=== PATIENT | female | born 1950 | race Caucasian/White ===

== ENCOUNTER 2017-07-04 13:12 | Emergency (ER) | payer OTHER ==
[~2017-07-04] VITALS: Ht 149.9 cm; Wt 98.0 kg
[~2017-07-04 13:12] MED LIST: A/B OTIC15 ML; AMLODIPINE BESYL5 M1 PO; ATORVASTATIN CA40 M1 PO; BENAZEPRIL HCL/1 TAB PO; ECOTRIN81 MG PO; GLIPIZIDE10 MG PO; METFORMIN HCL1000 MG PO; ZANTAC 150150 MG PO
[2017-07-04 14:13] VITALS: Ht 149.9 cm; Wt 98.0 kg
[2017-07-04 18:08] LABS: CALCIUM 8.8 mg/dL (8.5-10.1); CHLORIDE SERUM 103 mmol/L (98-107); CREATININE SERUM 0.7 mg/dL (0.6-1.0); GFR1 > 60 mL/min; GLUCOSE SERUM 251 mg/dL (74-106); POTASSIUM SERUM 3.4 mmol/L (3.5-5.1); SODIUM SERUM 140 mmol/L (136-145)
[2017-07-04 18:09] LABS: BASOPHIL % 0.6 % (0-2); PLATELET COUNT 251 x10^3mcL (130-400); RED CELL DISTRIBUTION WIDTH 14.4 % (11.5-14.5)
[2017-07-04 18:13] LABS: ALBUMIN 3.5 g/dL (3.4-5.0); ALKALINE PHOSPHATASE 142 U/L (46-116); ALT/SGPT 25 U/L (14-59); AST/SGOT 21 U/L (15-37); BILIRUBIN TOTAL 0.4 mg/dL (0.20-1.00); TOTAL PROTEIN, SERUM 8.1 g/dL (6.4-8.2)
[2017-07-04 20:42] VITALS: BP 132/65
== END 2017-07-04 20:42 | disposition home or self-care (01) ==
LOC: ED 13:12
PROVIDERS: Emergency Medicine
DX: H81.10 Benign paroxysmal vertigo, unspecified ear (principal); R11.10 Vomiting, unspecified; E11.9 Type 2 diabetes mellitus without complications; E78.00 Pure hypercholesterolemia, unspecified; I10 Essential (primary) hypertension; Z79.84 Long term (current) use of oral hypoglycemic drugs; Z79.4 Long term (current) use of insulin
CPT/HCPCS: 83880; J2405; J2765; J7030; J8597; Q0092

== ENCOUNTER 2019-06-18 02:47 | Emergency (ER) | payer OTHER ==
[~2019-06-18] VITALS: Ht 160 cm; Wt 91.6 kg
[2019-06-18 02:57] VITALS: Ht 160 cm; Wt 91.6 kg
[2019-06-18 03:26] LABS: BASOPHIL % 0.4 % (0-2); PLATELET COUNT 236 x10^3mcL (130-400); RED CELL DISTRIBUTION WIDTH 14.5 % (11.5-14.5)
[2019-06-18 04:51] VITALS: BP 135/65
[2019-06-18 04:53] LABS: T3 TOTAL 1.2 ng/mL
[2019-06-18 05:01] LABS: CALCIUM 9.1 mg/dL (8.5-10.1); CARBON DIOXIDE 25.3 mmol/L (21-32); CHLORIDE SERUM 103 mmol/L (98-107); CREATININE SERUM 0.9 mg/dL (0.6-1.0); GLUCOSE SERUM 140 mg/dL (74-106); POTASSIUM SERUM 4.4 mmol/L (3.5-5.1); SODIUM SERUM 140 mmol/L (136-145)
[2019-06-18 05:06] LABS: ALBUMIN 3.6 g/dL (3.4-5.0); ALKALINE PHOSPHATASE 150 U/L (46-116); ALT/SGPT 27 U/L (14-59); AST/SGOT 17 U/L (15-37); BILIRUBIN TOTAL 0.34 mg/dL (0.20-1.00); CHOLESTEROL 157 mg/dL (<200); CHOLESTEROL/HDL RATIO 3.5; HDL CHOLESTEROL 45 mg/dL (40-60); LIPASE 165 IU/L (73-393); TOTAL PROTEIN, SERUM 7.8 g/dL (6.4-8.2); TRIGLYCERIDES 105 mg/dL (<150)
[2019-06-18 05:15] LABS: T4(THYROXINE) 10.1 ug/dL (4.7-13.3)
[2019-06-18 05:16] LABS: FREE THYROXINE INDEX 3.6 ug/dL (1.4-4.5)
[2019-06-18 05:24] LABS: FREE T4 1.22 ng/dL (0.76-1.46)
== END 2019-06-18 04:51 | disposition home or self-care (01) ==
LOC: ED 02:47
PROVIDERS: Specialist
DX: R42 Dizziness and giddiness (principal); I10 Essential (primary) hypertension; E11.9 Type 2 diabetes mellitus without complications; E78.00 Pure hypercholesterolemia, unspecified; R11.0 Nausea
CPT/HCPCS: 82962; 83880; 84439; J2405; J8597; Q0092